=== PATIENT | female | born 1985 | race Two or more races ===

== ENCOUNTER 2022-07-11 08:22 | Emergency (ER) | payer OTHER ==
[~2022-07-11] VITALS: Ht 165.1 cm; Wt 71.2 kg
[2022-07-11] MEDS ORDERED: ZITHROMAX500 MG PO (10:48)
[2022-07-11] MEDS ORDERED: TUSSIN DM SYRU118 ML PO (10:48)
== END 2022-07-11 11:13 | disposition home or self-care (01) ==
LOC: ER 08:22
DX: B34.9 Viral infection, unspecified (principal); Z20.822 Contact with and (suspected) exposure to COVID-19

== ENCOUNTER 2022-11-03 10:20 | Emergency (ER) | payer OTHER ==
[~2022-11-03] VITALS: Ht 165.1 cm; Wt 69.4 kg
[~2022-11-03 10:20] MED LIST: TUSSIN DM SYRU118 ML PO; ZITHROMAX500 MG PO
[2022-11-03] MEDS ORDERED: BACTRIM DS TAB1 EACH PO (12:08)
== END 2022-11-03 12:34 | disposition home or self-care (01) ==
LOC: ER 10:20
DX: N39.0 Urinary tract infection, site not specified (principal); R30.0 Dysuria

== ENCOUNTER 2024-12-06 12:40 | Emergency (ER) | payer OTHER ==
[~2024-12-06] VITALS: Ht 165.1 cm; Wt 72.6 kg
[~2024-12-06 12:40] MED LIST changes: +BACTRIM DS TAB1 EACH PO
[2024-12-06] MEDS ORDERED: ACETAMINOPHEN 500 MG GEL..CAP PO ONE ×2 (14:30→14:42)
[2024-12-06] MEDS ORDERED: CETIRIZINE HCL 5 MG/5 ML ML PO ONE (14:30)
[2024-12-06] MEDS ORDERED: 0.9 % SODIUM CHLORIDE 1,000 ML IV ONE (14:30)
[2024-12-06] MEDS ORDERED: CETIRIZINE HCL 5MG/5ML BLIST.PACK PO ONE (14:42)
[2024-12-06 15:30] LABS: BASO % 0.1 % (0.1-1.2); EOS # 0.00 (0.04-0.54); EOS % 0.0 % (0.7-7.0); LYMPH # 0.56 (1.18-3.74); LYMPH % 7.8 % (19.3-53.1); MEAN PLATELET VOLUME 9.80 fl (9.4-12.4); MONO # 0.72 (0.24-0.82); MONO % 10.1 % (4.7-12.5); NEUT # 5.82 (1.56-6.13); NEUT % 81.4 % (34.0-71.1); RED CELL DISTRIBUTION WIDTH 12.2 % (11.6-14.4)
[2024-12-06 16:11] LABS: ALT/SGPT 56.0 U/L (12-78); AST/SGOT 42.0 U/L (15-37); BILIRUBIN TOTAL 0.34 mg/dL (0.3-1.2); BUN CREA RATIO 12.0 (7.0-25.0); CREATININE SERUM 0.84 mg/dL (0.55-1.02); GFR 75.88; GLOBULINA 4.2 G/DL (2.4-3.5); GLUCOSE FASTING 96.0 mg/dL (65-100); OSMOLALITY SERUM 267.0 MOSM/KG (275-295)
[2024-12-06 16:28] LABS: COVID-19 AG NEGATIVE (NEGATIVE)
[2024-12-06] MEDS ORDERED: OSELTAMIVIR PHOSPHATE 75 MG CAPSULE PO ONE ×2 (17:00→17:19)
[2024-12-06] MEDS ORDERED: OSEL75CA PO (17:09)
[2024-12-06] MEDS ORDERED: TUSSIN DM 200-118 ML PO (17:09)
[2024-12-06] MEDS ORDERED: ZYRTEC10 MG PO (17:09)
== END 2024-12-06 18:14 ==
LOC: ER 12:40
PROVIDERS: General Practice
DX: J10.1 Influenza due to other identified influenza virus with other respiratory manifestations (principal); Z20.822 Contact with and (suspected) exposure to COVID-19